=== PATIENT | male | born 1980 | race African-American/Black ===

== ENCOUNTER 2017-02-03 10:35 | Emergency (ER) | payer SELFPAY ==
[~2017-02-03] VITALS: Ht 182.9 cm; Wt 72.5 kg
[2017-02-03 10:36] VITALS: BP 117/80; PULSE 106; RESP 20; TEMP 99.4; O2SAT 98
--- NOTE | 2017-02-03 11:22 | PD ---
HPI Chief Complaint: Cold / Flu Symptoms Time Seen by Provider: 11:11 Travel History International Travel<30 days: No Contact w/Intl Traveler<30days: No Traveled to known affect area: No History of Present Illness HPI 36-year-old diabetic male presents to emergency department complaining of two medical complaints today. He is complaining nonproductive cough, sneezing, congestion, cold symptoms since Monday. States that he also has a headache but has not tried any xwhk-mvx-dxhlxux medications for symptoms. Denies fever or chills. Denies chest pain or shortness of breath. Denies back pain. Patient is also concerned about a mildly painful cyst on his right big toe that was treated several months ago. States this is has been on his right toe for approximately 1 week. Says he has mild pain but is concerned that it has reopened. Denies radiation of pain. Denies fevers or chills, numbness, tingling, pain. Patient is diabetic but denies neuropathy. PFSH Social History Tobacco Use: No Allergies-Medications (Allergen,Severity, Reaction): Coded Allergies: No Known Allergies (Verified Allergy, Unknown, 02/03/17) Reported Meds & Prescriptions Reported Meds & Active Scripts Active Bactrim DS (Sulfamethoxazole-Trimethoprim) 800-160 Mg Tab 1 Tab PO BID Review of Systems Except as stated in HPI: all other systems reviewed are Neg Physical Exam Narrative GENERAL: Well-nourished, well-developed patient. SKIN: Focused skin assessment warm/dry. HEAD: Normocephalic. EYES: No scleral icterus. No injection or drainage. EARS: Bilateral pinnae and external canals appear within normal limits. Bilateral tympanic membranes without erythema, dullness or perforation. NECK: Supple, trachea midline. No JVD or lymphadenopathy. CARDIOVASCULAR: Regular rate and rhythm without murmurs, gallops, or rubs. RESPIRATORY: Breath sounds equal bilaterally. No accessory muscle use. No wheezing, rales or rhonchi. MUSCULOSKELETAL: No cyanosis, or edema. Right great toe- distally, maceration present without exudate or bleeding, significant calluses. No significant erythema or lymphangitic Spread. Mildly tender to the distal aspect BACK: Nontender without obvious deformity. No CVA tenderness. Data Data Last Documented VS Vital Signs Date Time Temp Pulse Resp B/P (MAP) Pulse Ox O2 Delivery O2 Flow Rate FiO2 12/29/17 10:36 99.4 106 20 117/80 (92) 98 Room Air Orders Orders Foot, Limited (2vws) (02/03/17 ) Ed Discharge Order (02/03/17 12:45) Mandatory Outpatient Referral (02/03/17 12:47) MDM Medical Decision Making Medical Screen Exam Complete: Yes Emergency Medical Condition: Yes Differential Diagnosis Diabetic ulcer of the right great toe, upper respiratory infection, cellulitis Narrative Course 36-year-old diabetic male presents to emergency department complaining of two medical complaints today. He is complaining nonproductive cough, sneezing, congestion, cold symptoms since Monday. States that he also has a headache but has not tried any xaum-lwo-khzsyqw medications for symptoms. Denies fever or chills. Denies chest pain or shortness of breath. Denies back pain. Patient is also concerned about a cyst on his right big toe that was treated previously. States this is has been on his right toe for approximately 1 week. Says he has mild pain but is concerned that it has reopened. Denies radiation of pain. Denies fevers or chills, numbness, tingling, pain. Patient is diabetic but denies neuropathy. Vital signs stable Physical exam findings consistent with an upper respiratory infection without evidence of pneumonia or other bacterial infection. Right great toe concerning for diabetic ulcer. Does not overtly appear infected however, because patient does not have a primary care physician I am opting to treat and recommend he follow-up with wound care. X-ray ordered to rule out osteomyelitis. I've a low suspicion however, because this patient is diabetic and has had an issue previously, x-ray was ordered. X-ray findings are not consistent with the area of concern. I will discharge patient with antibiotics and advised follow-up podiatry. Patient states he understood and will comply. Follow up with [facility] and return to the emergency room for worsening or persistent symptoms. Diagnosis Primary Impression: Diabetic ulcer of toe Qualified Codes: E11.621 - Type 2 diabetes mellitus with foot ulcer; L97.511 - Non-pressure chronic ulcer of other part of right foot limited to breakdown of skin Additional Impression: Upper respiratory infection Qualified Codes: J06.9 - Acute upper respiratory infection, unspecified; B97.89 - Other viral agents as the cause of diseases classified elsewhere Referrals: [facility] Additional Instructions: Follow up with your primary care physician within 2-3 days. If your symptoms persist or worsen, return to the emergency department. You may bathe as normal. You may use iodt-otq-osfqxgu triple antibiotic ointments for your injury daily. Cover the wound daily with clean dry gauze. Change dressings daily. Take all medication as prescribed. If he developed increased redness, swelling, or pain return to the emergency department. Scripts Sulfamethoxazole-Trimethoprim (Bactrim DS) 800-160 Mg Tab 1 TAB PO BID for Infection, #20 TAB 0 Refills Prov: Vy Lord 02/03/17 Disposition: 01 DISCHARGE HOME Condition: Stable Vy Lord Feb 03, 2017 11:22
[2017-02-03] MEDS ORDERED: BACT800T5 PO (12:09)
--- NOTE | 2017-02-03 12:39 | RADRPT ---
EXAM DATE/TIME: 02/03/2017 11:44 [facility] COMPARISON: No previous studies available for comparison. INDICATIONS : Inflammation of the right great toe for one month. MEDICAL HISTORY : Diabetes mellitus type II. SURGICAL HISTORY : None. ENCOUNTER: Initial ACUITY: 1 month PAIN SCORE: 0/10 LOCATION: Right great toe. FINDINGS: Bone density is normal. There is a focal deformity of the distal medial angle of the proximal phalanx of the second digit at the interphalangeal joint suggesting possible marginal erosion or bony injury . This is only seen on the frontal view. No significant soft tissue swelling and no radiopaque foreig n bodies. The osseous structures the remainder of the foot are normal. CONCLUSION: Focal oval lucency at the distal medial angle of the proximal phalanx at the interphalangeal joint, n onspecific in appearance, could represent an erosion, manifestation of trauma, or manifestation of in fection. Odilon Del Toro MD on February 03, 2017 at 12:35 Board Certified Radiologist. This report was verified electronically.
== END 2017-02-03 13:30 | disposition home or self-care (01) ==
LOC: NEPK 10:35
DX: J06.9 Acute upper respiratory infection, unspecified (principal); E11.621 Type 2 diabetes mellitus with foot ulcer; R51 Headache
CPT/HCPCS: 73620; 99283